=== PATIENT | female | born 1990 ===

== ENCOUNTER 2016-09-15 06:03 | Observation (INO) | payer OTHER ==
[2016-09-14 11:47] VITALS: BMI 23.8
[2016-09-15] MEDS ORDERED: Lactated Ringer's 1,000 ML IV ONE ×2 (07:00→09:30)
[2016-09-15] MEDS ORDERED: Propofol 10 mg/ml Inj (20 ML) ONE ×2 (07:12→10:13)
[2016-09-15] MEDS ORDERED: Midazolam 2 MG/2 ML VIAL ONE (07:12)
[2016-09-15] MEDS ORDERED: ePHEDrine 50 mg/ml Inj ONE (07:13)
[2016-09-15] MEDS ORDERED: Rocuronium 10 mg/ml (5 ml) ONE (07:13)
[2016-09-15] MEDS ORDERED: Succinylcholine 200 mg/10 ml Inj IV ONE (07:14)
[2016-09-15] MEDS ORDERED: Bupivacaine 0.25%-Epinephrine 1:200,000 (30 ml) Inj ONE (07:20)
[2016-09-15] MEDS ORDERED: Dexamethasone 4 mg/1 ml ONE (08:49)
[2016-09-15] MEDS ORDERED: Neostigmine Methylsulfate 3mg/3ml Syringe IV ONE (08:56)
[2016-09-15] MEDS ORDERED: Methylene Blue 10 mg/ml (1ml) Inj IV ONE (09:30)
[2016-09-15] MEDS ORDERED: HEMOSTATIC MATRIX 10 ML DIS.NEEDLE TOP ONE (09:37)
[2016-09-15] MEDS ORDERED: Bupivacaine 0.25%-Epinephrine 1:200,000 (30 ml) Inj IJ ONE (09:42)
[2016-09-15] MEDS: HYDROmorphone 0.5 mg/0.5 ml ISec IVP PRN ×2 (11:15→11:45)
--- NOTE | 2016-09-15 11:21 | PCM.SURG1 ---
Surgeon's Initial Post Op Note - Surgeon's Notes Surgeon: Diomedes De La Garza md [employer] Engineering: Valentine Soto md, Rafat ELISE Type of Anesthesia: General Endo, Local Pre-Operative Diagnosis: symptomatic fibroid uterus. Abnormal uterine bleeding. Chronic pelvic pain Operative Findings: Enlarged subserosal myoma cluster approx 5cm in diameter, multile myomas >5 myomas noted. Posterior culdesac endometriosis. Detailed Operative Report. This is a 26 years old female with an enlarged fibroid uterus, associated abnormal uterine bleeding and chronic pelvic pain. Following complete workup at the office which included an ultrasound, as well as Pap smear a decision was made to proceeds with a robotic assisted myomectomy. A decision was made to proceed with robotic assisted myomectomy as conservative management failed and pt reports these symptoms as debilitating and affecting her quality of life. After proper consent was obtained from the patient was taken to the operating room where general anesthesia was obtained without difficulty. She was placed in dorsal lithotomy position her legs were placed in adjustable Reinier stirrups. Careful attention was placed not to over- flex or over-rotate the lower extremities at the hip or the knee joints. She was prepped and draped appropriately for robotic assisted myomectomy. Kearns catheter was inserted under sterile conditions. A standard size V-care uterine manipulator was inserted through the cervix and secured. A local anesthetic solution of quarter percent Marcaine was utilized to infiltrate the skin prior to any skin incision. A total of 15 mL of 0.25% Marcaine was utilized throughout the procedure. While tenting the abdominal wall a Veress needle was inserted through the umbilicus and pneumoperitoneum was obtained without difficulty. A small supra- umbilical 0.8 cm incision was made with a scalpel and a trocar and sleeve were introduced. Robotic camera was inserted and initial survey of the patient's abdomen revealed massively enlarged fibroid uterus, large cluster of myomas appeared in the anterior aspect of the uterus. Survey of the posterior cul-de-sac revealed deep peritoneal tissue endometriosis , with multiple nodular lesions extending close to the pelvic brim. 3 robotic ports were utilized for this procedure. The first port was on the patient's right side approximately 7 cm above the right superior iliac crest. The second robotic port was inserted approximately 7 cm cephalic to the first port and approximately 9 cm lateral to the camera port. The third robotic port was in the patient's left side approximately 7 cm superior to the left superior iliac crest. An sales assistants and salespersons port was inserted in the suprapubic region left of the midline. All robotic ports were approximately 7-8 mm in size, the sales assistants and salespersons and the camera port 1 cm in size. The sales assistants and salespersons as well as the camera ports were utilized the step trocars system. All trocars were inserted under direct visualization. The patient was placed in Trendelenburg position and the lateral side robotic docking was accomplished. The following instruments were utilized for this procedure: The PK sealing device was inserted on the left robotic port , monopolar priyank as well as a Prograsp and robotic tenaculum were utilized on the right side robotic ports. Prior to the initiation of this procedure both ureters along their courses were visualized, peristalsing normally at the level of the pelvic brim. Following meticulous anterolysis, and prior to the excision of the myomas and lysis of adhesions, it was necessary to explore both ureters and their courses in order to avoid structural compromise to ureters. Diluted Pitressin solution 40 units in 120 mL of saline was utilized to inject the base of all myomas seen prior to incision. Injection of petressin to the posterior wall and anterior wall of the uterus was needed to aid in hemostasis. A longitudinal incision was made into the anterior aspect of the uterine wall and an aliptical incision was completed to remove a cluster of multiple myomas. Meticulous sharp and blunt dissection enabled us to enucleate this large cluster of myomas without violating the endometrial cavity. The incision was closed in multiple leyers with 2-0 vlock in continues fashion. Good hemostasis noted. Meticulous and careful enterolysis as well as lysis of adhesions was completed in order to address the posterior cul-de-sac endometriosis. FloSeal's as well as Interceed were applied to all incisions. Excellent hemostasis was noted throughout. Utilizing sharp and blunt dissection all endometriosis nodular lesions were excised from the posterior cul-de-sac taking great care to avoid close proximity to the ureters and great vessels bilaterally. Excellent hemostasis was achieved utilizing the monopolar and bipolar instruments. Careful inspection revealed normal fallopian tubes and somewhat enlarged ovaries consistent with polycystic ovaries. Pneumoperitoneum was reduced after the removal of all instruments. The robotic instruments and towels were filled with the patient's bedside. All skin incisions were closed with skin deborah and Steri-Strips. Dermabond was applied to all incisions. The cameras as well as the sales assistants and salespersons port were closed in a fascia layer utilizing 2-0 Vicryl in an interrupted fashion. Due to the very close proximity to both ureters and the massive size of this fibroids as well as the distorted pelvic anatomy, a diagnostic cystoscopy was necessary to ascertain bladder and ureters. The Kearns catheter was removed the bladder was distended with approximately 300 mL of normal saline. A 30 cystoscope was inserted and a survey of the bladder gray as well as ureteral orifices indicated effluxing ureters bilaterally, no compromise was noted to the bladder wall, the trigone as well as the urethra were normal appearing. Prior to incision patient received prophylactic antibiotics, prior to closure sponge lap and needle counts are correct x2. Patient tolerated the procedure well and was taken to recovery room in stable condition. Note: Naida hansen provided essential useful assisting including retraction instruments switching as well as irrigation and closure again of the case. Post-Operative Diagnosis: symptomatic fibroid uterus. Abnormal uterine bleeding. Chronic pelvic pain Operation Performed: Robotic assisted myomectomy >5 myomas. Ablation of endoemtriosis. Lysis of adhesions. Cystoscopy Specimen/Specimens Removed: multiple myomas Estimated Blood Loss: EBL {In ML}: 20 Blood Products Given: N/A Drains Used: No Drains Post-Op Condition: Good Date of Surgery/Procedure: 09/15/16 Time of Surgery/Procedure: 11:22
[2016-09-15] MEDS ORDERED: Oxycodone/Acetaminophen 5/325 mg Tab PO PRN (11:22)
[2016-09-15] MEDS: Lactated Ringer's 1,000 ML IV SCH ×2 (13:00→20:04)
[2016-09-16 00:17] VITALS: RESP 18
[2016-09-16] MEDS: Lactated Ringer's 1,000 ML IV SCH (06:00)
[2016-09-16 07:54] LABS: BASO # 0.1 K/uL (0.0-0.2); BASO % 0.5 % (0.0-2.0); EOS % 0.5 % (0.0-4.0); LYMPH # 2.4 K/uL (1.0-4.3); MEAN CELL VOLUME 89.4 fl (81.0-99.0); MEAN CORPUSCULAR HEMOGLOBIN 29.4 pg (27.0-31.0); MEAN CORPUSCULAR HGB CONC 32.9 g/dL (33.0-37.0); MONO # 0.9 K/uL (0.0-0.8); MONO % 8.9 % (0.0-10.0); NEUT % 67.1 % (50.0-75.0); NRBC % 0.1 % (0.0-0.0); RED CELL DISTRIBUTION WIDTH 13.2 % (11.5-14.5); WHITE BLOOD COUNT 10.4 K/uL (4.8-10.8)
[2016-09-16 08:25] LABS: BLOOD UREA NITROGEN 7 mg/dl (7-17); CALCIUM 8.6 mg/dL (8.4-10.2); CARBON DIOXIDE 26 mmol/L (22-30); CHLORIDE 106 mmol/L (98-107); GFR AFRICAN-AMERICAN > 60; GLUCOSE,RANDOM 93 mg/dL (65-105); POTASSIUM 3.8 MMOL/L (3.6-5.0); SODIUM 139 mmol/l (132-148)
[2016-09-16 12:36] VITALS: BP 124/74; PULSE 84; TEMP 98.2; O2SAT 98
--- NOTE | 2016-09-16 14:21 | CP.PCM.PN ---
Subjective - Date & Time of Evaluation Date of Evaluation: 09/16/16 Time of Evaluation: 13:00 - Subjective Subjective: pt c/o incisional pain alleviated with oral pain meds,kami diet,ambulating with minimal asst,+ flatus,voiding without c/o Objective - Vital Signs/Intake and Output Vital Signs (last 24 hours): Temp Pulse Resp BP Pulse Ox 98.2 F 84 18 124/74 98 09/16/16 09:00 09/16/16 09:00 09/16/16 09:00 09/16/16 09:00 09/16/16 09:00 Intake and Output: 09/16/16 09/16/16 06:59 18:59 Intake Total 1520 Output Total 1500 Balance 20 - Medications Medications: Current Medications Hydromorphone HCl (Dilaudid) 0.5 mg IVP Q10M PRN PRN Reason: Pain, moderate (4-7) Last Admin: 09/15/16 11:45 Dose: 0.5 mg Hydromorphone HCl (Dilaudid) 2 mg IVP Q3H PRN PRN Reason: Pain, severe (8-10) Last Admin: 09/15/16 19:57 Dose: 2 mg Lactated Ringer's (Lactated Ringer's) 1,000 mls @ 125 mls/hr IV .Q8H [facility] Last Admin: 09/16/16 06:00 Dose: 125 mls/hr Ketorolac Tromethamine (Toradol) 30 mg IVP Q6H [facility] Last Admin: 09/16/16 11:24 Dose: 30 mg Ondansetron HCl (Zofran Inj) 4 mg IVP Q6 PRN PRN Reason: Nausea/Vomiting Last Admin: 09/15/16 18:39 Dose: 4 mg Oxycodone/Acetaminophen (Percocet 5/325 Mg Tab) 1 tab PO Q4H PRN PRN Reason: Pain, moderate (4-7) Stop: 09/18/16 11:23 Last Admin: 09/16/16 08:22 Dose: 1 tab - Labs Labs: 09/16/16 07:48 09/16/16 07:48 - Constitutional Appears: Well, Non-toxic, No Acute Distress - Head Exam Head Exam: ATRAUMATIC, NORMAL INSPECTION, NORMOCEPHALIC - Eye Exam Eye Exam: EOMI, Normal appearance, PERRL - ENT Exam ENT Exam: Mucous Membranes Moist - Neck Exam Neck Exam: Normal Inspection - Respiratory Exam Respiratory Exam: Clear to Ausculation Bilateral - Cardiovascular Exam Cardiovascular Exam: REGULAR RHYTHM, +S1, +S2 - GI/Abdominal Exam GI & Abdominal Exam: Soft, Normal Bowel Sounds Additional comments: incisions C/D/I,+ incisional tenderness - Extremities Exam Extremities Exam: Normal Inspection - Neurological Exam Neurological Exam: Alert, Oriented x3 - Psychiatric Exam Psychiatric exam: Normal Affect, Normal Mood - Skin Skin Exam: Dry, Intact Assessment and Plan - Assessment and Plan (Free Text) Assessment: 26 yo female POD#1 Robotic Myomectomy/Endometriosis Ablation/Hemodynamically stable Plan: d/c home today with family and f/u appt in [address] De La Garza
--- NOTE | 2016-09-16 14:29 | CP.PCM.DIS ---
Provider - Provider Date of Admission: 09/15/16 11:22 Attending physician: Diomedes De La Garza MD Primary care physician: NO FAMILY PROVIDER Time Spent in preparation of Discharge (in minutes): 30 Diagnosis - Discharge Diagnosis (1) Fibroid uterus Status: Chronic (2) Endometriosis Status: Chronic Hospital Course - Lab Results Lab Results: Most Recent Lab Values WBC 10.4 K/uL (4.8-10.8) 09/16/16 07:48 RBC 4.14 Mil/uL (3.80-5.20) 09/16/16 07:48 Hgb 12.2 g/dL (12.0-16.0) 09/16/16 07:48 Hct 37.0 % (34.0-47.0) 09/16/16 07:48 MCV 89.4 fl (81.0-99.0) 09/16/16 07:48 MCH 29.4 pg (27.0-31.0) 09/16/16 07:48 MCHC 32.9 g/dL (33.0-37.0) L 09/16/16 07:48 RDW 13.2 % (11.5-14.5) 09/16/16 07:48 Plt Count 238 K/uL (130-400) 09/16/16 07:48 MPV 9.0 fl (7.2-11.7) 09/16/16 07:48 Neut % (Auto) 67.1 % (50.0-75.0) 09/16/16 07:48 Lymph % (Auto) 23.0 % (20.0-40.0) 09/16/16 07:48 [place] % (Auto) 8.9 % (0.0-10.0) 09/16/16 07:48 Eos % (Auto) 0.5 % (0.0-4.0) 09/16/16 07:48 Baso % (Auto) 0.5 % (0.0-2.0) 09/16/16 07:48 Neut # 7.0 K/uL (1.8-7.0) 09/16/16 07:48 Lymph # 2.4 K/uL (1.0-4.3) 09/16/16 07:48 [place] # 0.9 K/uL (0.0-0.8) H 09/16/16 07:48 Eos # 0.0 K/uL (0.0-0.7) 09/16/16 07:48 Baso # 0.1 K/uL (0.0-0.2) 09/16/16 07:48 Sodium 139 mmol/l (132-148) 09/16/16 07:48 Potassium 3.8 MMOL/L (3.6-5.0) 09/16/16 07:48 Chloride 106 mmol/L (98-107) 09/16/16 07:48 Carbon Dioxide 26 mmol/L (22-30) 09/16/16 07:48 Anion Gap 10 (10-20) 09/16/16 07:48 BUN 7 mg/dl (7-17) 09/16/16 07:48 Creatinine 0.7 mg/dL (0.7-1.2) 09/16/16 07:48 Est GFR ( Amer) > 60 09/16/16 07:48 Est GFR (Non-Af Amer) > 60 09/16/16 07:48 Random Glucose 93 mg/dL (65-105) 09/16/16 07:48 Calcium 8.6 mg/dL (8.4-10.2) 09/16/16 07:48 Blood Type O POSITIVE 09/15/16 06:40 Blood Type Confirm O POSITIVE 09/15/16 07:57 Antibody Screen Negative 09/15/16 06:40 BBK History Checked No verified bt 09/15/16 06:40 Discharge Exam - Head Exam Head Exam: ATRAUMATIC, NORMAL INSPECTION, NORMOCEPHALIC - Eye Exam Eye Exam: EOMI, Normal appearance, PERRL - ENT Exam ENT Exam: Mucous Membranes Moist - Respiratory Exam Respiratory Exam: Clear to PA & Lateral - Cardiovascular Exam Cardiovascular Exam: REGULAR RHYTHM - GI/Abdominal Exam GI & Abdominal Exam: Soft Additional comments: incisions C/D/I - Extremities Exam Extremities exam: normal inspection, pedal pulses present - Neurological Exam Neurological exam: Alert, Oriented x3 - Psychiatric Exam Psychiatric exam: Normal Affect, Normal Mood Discharge Plan - Follow Up Plan Condition: GOOD Disposition: HOME/ ROUTINE Instructions: Oxycodone/Acetaminophen (By mouth), Surgical Site Infections (DC) , Myomectomy (DC) Additional Instructions: may eat regular foods with lots of liquids, follow up with Dr De La Garza in one week, call for appointment no heavy lifting or straining, keep durmabond intact on surgical puncture sites do not peel off May shower tomorrow, no baths, pools or lakes may take percocet one tablet every 8 hours for pain or Motrin as was instructed by the PA contact MD if fever, heavy vaginal bleeding, difficulty urinating , pus from surgical sites or for any other concerns Seek medical care if symptoms worsen Referrals: FAMILY PROVIDER,NO [Primary Care Provider] - Diomedes De La Garza MD [Staff Provider] -
== END 2016-09-16 15:00 | disposition home or self-care (01) ==
LOC: H.OPSURG 06:03 → INTOOBSV 11:22 → H.PEDS 11:22
PROVIDERS: ADMIT Obstetrics & Gynecology; ATTEND Obstetrics & Gynecology
PROC: 0U5B0ZZ Destruction of Endometrium, Open Approach (ICD-10-PCS; 2016-09-15)
PROC: 8E0W0CZ Robotic Assisted Procedure of Trunk Region, Open Approach (ICD-10-PCS; 2016-09-15)
PROC: 0UB90ZZ Excision of Uterus, Open Approach (ICD-10-PCS; principal; 2016-09-15 07:45)
DX: D25.9 Leiomyoma of uterus, unspecified (principal); G89.29 Other chronic pain; N80.9 Endometriosis, unspecified; R10.2 Pelvic and perineal pain